=== PATIENT | female | born 1980 | race Caucasian/White ===

== ENCOUNTER → 2016-12-07 | Day surgery (SDC) | payer BC ==
[~2016-12-07] MED LIST: Buffered Lidocaine 1% SYR 3ML* 3 ML/SYR SYRINGE INTRADERM ONE; Buffered Lidocaine 1% SYR 3ML* 3 ML/SYR SYRINGE ONE; Bupivacaine 0.5% SDV PF* 30 ML VIAL ONE; Clindamycin 900 MG IVPREMIX(* 900 MG/50 ML SDV IV ONE; Dexamethasone IV* 4 MG/ML 1 ML (4 MG) IV SLOW PU ONE; Dexamethasone IV* 4 MG/ML 1 ML (4 MG) ONE; EPINEPHrine AMP 1 MG/ML ONE; Famotidine IV* 10 MG/ML 2 ML (20 mg) IV ONE; Famotidine IV* 10 MG/ML 2 ML (20 mg) ONE; Ketorolac INJ* 30 MG/ML 1 ML VIAL ONE; Lidocaine 2% MPF* 2 ML VIAL ONE; Midazolam* 1 MG/ML 5 ML VIAL (5 MG) ONE; Ondansetron INJ* 2 MG/ML VIAL IV PRN; Ondansetron INJ* 2 MG/ML VIAL ONE; Propofol* 10 MG/ML 20 ML BTL IV PUSH ONE; fentaNYL* 50 MCG/ML 2 ML VIAL (100 MCG VIAL) ONE; fentaNYL* 50 MCG/ML 5 ML VIAL (250 MCG VIAL) ONE; methylPREDNISolone ACETATE 80* 80 MG/ML 1 ML VIAL ONE; oxyCODONE/Acetamin 5/325 MG* TAB ONE; oxyCODONE/Acetamin 5/325 MG* TAB PO PRN
[2016-12-07 10:05] LABS: UR Preg Internal Control QC Line Present
[2016-12-07] MEDS: fentaNYL* 50 MCG/ML 2 ML VIAL (100 MCG VIAL) IV PRN ×2 (13:29→13:46)
[2016-12-07 14:47] VITALS: BP 103/62
--- NOTE | 2016-12-08 02:14 | OP ---
OPERATIVE REPORT: DATE OF OPERATION: 12/07/16 DATE OF : 84 SURGEON: Nguyen Louie MD. ICE SKATING INSTRUCTOR: Tere Patterson LPN. ANESTHESIOLOGIST: Dr. Arora. ANESTHESIA: General. PRE-OP DIAGNOSIS: Right knee medial and lateral meniscal tear, osteoarthritic changes. POST-OP DIAGNOSIS: Right knee longitudinal medial meniscal tear, radial lateral meniscal tear, mode rate to severe degenerative osteoarthritis in the medial and patellofemoral compartments. PROCEDURE PERFORMED: Right knee arthroscopy with partial medial meniscectomy and partial lateral me niscectomy. COMPLICATIONS: None. ESTIMATED BLOOD LOSS: Less than 25 cc. SPECIMEN: None. BRIEF HISTORY/INDICATIONS: Ms. Domingo is a 36-year-old female with years of chronic right knee pain. She had prior ACL reconstruction and several arthroscopies for meniscal tear and scar tissue. She continued to have an increase in her pain over the last few months and thought she had a re-tear of her meniscus. MRI confirmed both medial and lateral meniscal tears. Due to the patient's decre ased quality of life and inability to take part in sports activity, she wished to have another right knee arthroscopy with partial meniscectomies, possible chondroplasty, possible synovectomy. Informed consent was obtained from the patient. She understood the risks of the procedure included b ut were not limited to bleeding, infection, damage to nearby structures, continued pain, need for fu rther surgery, stroke, heart attack, blood clot and . She wished to proceed. INTRAOPERATIVE FINDINGS: Intraoperatively, the patient was noted to have a longitudinal type tear i n white-red zone of the mid portion and posterior aspect of the medial meniscus. She had a radial t ear involving the mid portion of the lateral meniscus. She had a large fissure with exposed subchon dral bone along the weightbearing portion of the medial femoral condyle. She had some degenerative areas with loss of the cartilage in the lateral femoral condyle. She also had grade 2 and 3 Outerbr idge cartilage changes in the patellofemoral compartment. ACL graft appeared to be intact. DESCRIPTION OF PROCEDURE: Ms. Domingo was identified in the preanesthesia unit. Her right lower extr emity was marked as the correct operative site. Informed consent was signed and placed in the chart . The patient was taken to the operating room and placed under general anesthesia without difficult y. A tourniquet was placed on the right thigh but was not inflated. Right lower extremity was prep ped and draped in the usual sterile fashion. Preoperative time-out was made to correctly identify t he patient's side and site. Appropriate perioperative antibiotics were given within 1 hour of incis ion. A 0.5 cm anterolateral portal incision was made with a 15-blade and carried down through the capsule . Trocar was introduced. As soon as the light and water sources were turned on, there was immediate visualization of the suprapatellar pouch. A tour of the knee joint was performed. Suprapatellar p ouch had no obvious abnormality. There were small numerous cartilage fragments floating in the join t fluid. Patellofemoral compartment showed some anterior synovitis as well as some grade 2 and [address] cartilage changes. Medial gutters showed no obvious loose body or plica. Medial compartm ent showed no obvious meniscal tear. There was a large longitudinal fissure along the medial femora l condyle with exposed subchondral bone. This involved the majority of the medial femoral condyle w eightbearing surface. There was a loose piece of cartilage in the medial compartment. ACL graft appeared to be intact. The knee was placed in the [id number] position. Lateral menis cus had a visible radial tear in the mid portion. Some fissuring of the lateral femoral condyle car tilage. Under direct visualization, a medial portal incision was made with a 15-blade. Shaver was introduced and the large cartilage fragment in the medial compartment was removed. Next the probe was introdu shelia and a second tour of the knee joint was performed. Medial compartment fissure involve the major ity of the weightbearing surface of the medial femoral condyle. Probing of the medial meniscus show ed a longitudinal tear in the white-red zone involving the majority of the meniscus posteriorly and the mid portion. Straight biter and shaver were used to perform partial medial meniscectomy until a smooth border was obtained in the white-red zone. The ACL was probed and noted to be intact. The knee was placed in the [id number] position. A short straight biter and shaver were used to perf orm partial lateral meniscectomy. This radial tear was in the white-white and white- red zone at th e mid portion of the meniscus. A smooth border of the meniscus was obtained. At this time, the sha mavis was placed in the suprapatellar pouch. The knee was copiously irrigated with sterile saline unt il no further cartilage fragments were visible and no joint fluid. All instruments were carefully r emoved. The incisions were closed using interrupted 3-0 nylon suture. Xeroform, 4x4s, and Webril we re placed over the incisions. Rodri wrap and cold pack were placed over this. The patient's anesthes ia was reversed without difficulty. She was taken to the PACU in stable condition. Intended weight bearing will be weightbearing as tolerated. Intended DVT prophylaxis will be aspirin. [id number]/[facility] #: [id number]
== END | disposition home or self-care (01) ==
LOC: OR 09:09
PROVIDERS: ATTEND Orthopaedic Surgery Adult Reconstructive Orthopaedic Surgery
DX: M23.203 Derangement of unspecified medial meniscus due to old tear or injury, right knee (principal); M23.200 Derangement of unspecified lateral meniscus due to old tear or injury, right knee; M17.11 Unilateral primary osteoarthritis, right knee
CPT/HCPCS: 81025; A9270-GY; J0171; J1040; J1100; J1885; J2250; J2405; J2704; J3010

== ENCOUNTER 2018-02-11 10:51 | Emergency (ER) | payer BC ==
--- NOTE | 2018-02-11 11:43 | UC ---
FLU HPI - HPI Summary HPI Summary: 37 y/o female presents to the urgent care c/o sore throat, nasal congestion, dry cough, body aches, fatigue, RAMOS for the past 4 days. Pt reports. Pt is not sure of fever, She has been taking NYquill, Sudafed and ibuprofen PO to alleviate symptoms w/o any improvement. Ramos is 3/10 and nasal congestion w/ yellowish nasal discharge. Pt denies SOB, chest pain, abdominal pain, N/V/D. - History of Current Complaint Stated Complaint: FLU SYMPTOMS Time Seen by Provider: 02/11/18 11:42 Hx Obtained From: Patient Onset/Duration: Gradual Onset, Lasting Days - 4 days, Still Present, Worse Since - yesterday Severity Currently: Mild Severity Initially: Moderate Pain Intensity: 3 Pain Scale Used: 0-10 Numeric Associated Signs & Symptoms: Positive: Myalgia, Cough, Sore Throat, Nasal Congestion, Headache - Risk Factors Influenza Risk Factors: Negative - Allergy/Home Medications Allergies/Adverse Reactions: Allergies Allergy/AdvReac Type Severity Reaction Status Date / Time amoxicillin Allergy Rash Verified 02/11/18 11:55 Home Medications: Home Medications Dm/Acetaminophen/Doxylamine [Night Time Cold-Flu Rlf Sftgl] 02/11/18 [History] PMH/Surg Hx/FS Hx/Imm Hx Previously Healthy: Yes - Pt denies PMHX - Surgical History Surgical History: Yes Surgery Procedure, Year, and Place: left arthroscopic knee; tonsilLECTOMY; ACL replacement and arthroscopic right KNEE; wisdom teeth. Right knee arthoscropy to remove scar tissue X2 - Family History Known Family History: Positive: Diabetes Family History: Hypothyrodism - Social History Occupation: Employed Full-time Lives: With Family Alcohol Use: Rare Substance Use Type: None Smoking Status (MU): Never Smoked Tobacco Review of Systems Constitutional: Chills, Fatigue, Other - body aches Skin: Negative Eyes: Negative ENT: Sore Throat, Nasal Discharge, Sinus Congestion Respiratory: Cough - dry Cardiovascular: Negative Gastrointestinal: Negative Genitourinary: Negative Motor: Negative Neurovascular: Negative Musculoskeletal: Negative Neurological: Headache Psychological: Negative Is Patient Immunocompromised?: No All Other Systems Reviewed And Are Negative: Yes Physical Exam - Summary Physical Exam Summary: VITAL SIGNS: Reviewed. GENERAL: Patient is a well developed and nourished female who is sitting comfortable in the examining table. Patient is not in any acute respiratory distress. HEAD AND FACE: No signs of trauma. No ecchymosis, hematomas or skull depressions. No sinus tenderness. edematous erythematous nasal mucosa with yellowish discharge, EYES: PERRLA, EOMI x 2, No injected conjunctiva, clear watery eyes, no nystagmus. No photophobia. EARS: Hearing grossly intact. Ear canals and tympanic membranes are within normal limits. MOUTH: Positive pharynx with mild erythema, no exudates,no palatal petechiae. no B/L tonsillar enlargement, Uvula in midline. NECK: Supple, trachea is midline, Positive anterior cervical lymphadenopathy, no JVD, no carotid bruit, no c-spine tenderness, neck with full ROM. No meningeal signs, no Kernig's or brudzinskis signs. CHEST: Symmetric, no tenderness at palpation LUNGS: Clear to auscultation bilaterally. No wheezing or crackles. CVS: Regular rate and rhythm, S1 and S2 present, no murmurs or gallops appreciated. ABDOMEN: Soft, non-tender. No signs of distention. No rebound no guarding, and no masses palpated. Bowel sounds are normal. EXTREMITIES: FROM in all major joints, no edema, no cyanosis or clubbing. NEURO: Alert and oriented x 3. No acute neurological deficits. Speech is normal and follows commands. SKIN: Dry and warm Triage Information Reviewed: Yes Flu Course/Dx - Course Course Of Treatment: 37 y/o female presents to the urgent care c/o sore throat, nasal congestion, dry cough, body aches, fatigue, RAMOS for the past 4 days. Pt reports. Pt is not sure of fever, She has been taking NYquill, Sudafed and ibuprofen PO to alleviate symptoms w/o any improvement. Ramos is 3/10 and nasal congestion w/ yellowish nasal discharge. Pt denies SOB, chest pain, abdominal pain, N/V/D. Hx obtaine. Pt w/ URI on examination. Influenza A&B ordered: result: negative. Pt Rx ibuprofen PO and Tessalon tabs PO to alleviates symptoms. Advised on hand washing. Pt advised to rest, increase fluid intake, eat well and avoid strenuous exercise. If symptoms do not improve or worsen advised to return to the urgent care or f/u with her PCP for further evaluation and treatment. Pt understood and agreed with plan of care. - Differential Dx/Diagnosis Differential Diagnosis/HQI/PQRI: Bronchitis, Influenza, Upper Respiratory Infection Provider Diagnoses: 1- Upper respiratory infection. 2- Cough Discharge - Sign-Out/Discharge Documenting (check all that apply): Discharge - Discharge Plan Condition: Stable Disposition: HOME Prescriptions: Benzonatate CAP* [Tessalon 100 MG CAP*] 100 mg PO TID PRN #21 cap PRN Reason: Cough Patient Education Materials: Upper Respiratory Infection (ED) Forms: *Work Release Referrals: [facility] [place] [facility] [Outside] - 3 Days Additional Instructions: 1- Please take Tessalon tabs PO as directed to alleviate cough 2-Please continue taking Ibuprofen PO q6-8hrs prn as instructed after meals to alleviate fever, and sore throat. Increase fluid intake, eat well, rest and avoid strenuous exercise 3-If symptoms do not improve or worsen please return to the urgent care or f/u with your PCP in 3 days for further evaluation and treatment. - Billing Disposition and Condition Condition: STABLE Disposition: HOME
[2018-02-11 11:56] VITALS: BP 120/82
== END 2018-02-11 12:38 | disposition home or self-care (01) ==
LOC: UCCORT 10:51
DX: J06.9 Acute upper respiratory infection, unspecified (principal); R05 Cough; Z88.0 Allergy status to penicillin
CPT/HCPCS: 87502; 99211; G0463

== ENCOUNTER 2018-05-09 08:14 | Day surgery (SDC) | payer BC ==
[~2018-05-09 08:14] MED LIST changes: +Buffered Lidocaine 0.9% SYRIN* 5 ML/SYR SYRINGE INTRADERM ONE; -Buffered Lidocaine 1% SYR 3ML* 3 ML/SYR SYRINGE INTRADERM ONE; -Buffered Lidocaine 1% SYR 3ML* 3 ML/SYR SYRINGE ONE; -Bupivacaine 0.5% SDV PF* 30 ML VIAL ONE; -Clindamycin 900 MG IVPREMIX(* 900 MG/50 ML SDV IV ONE; -Dexamethasone IV* 4 MG/ML 1 ML (4 MG) IV SLOW PU ONE; -Dexamethasone IV* 4 MG/ML 1 ML (4 MG) ONE; -EPINEPHrine AMP 1 MG/ML ONE; -Famotidine IV* 10 MG/ML 2 ML (20 mg) IV ONE; -Famotidine IV* 10 MG/ML 2 ML (20 mg) ONE; -Ketorolac INJ* 30 MG/ML 1 ML VIAL ONE; -Lidocaine 2% MPF* 2 ML VIAL ONE; -Midazolam* 1 MG/ML 5 ML VIAL (5 MG) ONE; -Ondansetron INJ* 2 MG/ML VIAL IV PRN; -Ondansetron INJ* 2 MG/ML VIAL ONE; -Propofol* 10 MG/ML 20 ML BTL IV PUSH ONE; -fentaNYL* 50 MCG/ML 2 ML VIAL (100 MCG VIAL) ONE; -fentaNYL* 50 MCG/ML 5 ML VIAL (250 MCG VIAL) ONE; -methylPREDNISolone ACETATE 80* 80 MG/ML 1 ML VIAL ONE; -oxyCODONE/Acetamin 5/325 MG* TAB ONE; -oxyCODONE/Acetamin 5/325 MG* TAB PO PRN
[2018-05-09] MEDS ORDERED: Midazolam* 1 MG/ML 2 ML VIAL (2 MG) ONE (09:17)
[2018-05-09] MEDS ORDERED: fentaNYL* 50 MCG/ML 2 ML VIAL (100 MCG VIAL) ONE ×2 (09:17→11:14)
[2018-05-09] MEDS ORDERED: Dexamethasone IV* 4 MG/ML 1 ML (4 MG) ONE (10:20)
[2018-05-09] MEDS ORDERED: Famotidine IV* 10 MG/ML 2 ML (20 mg) ONE (10:20)
[2018-05-09] MEDS ORDERED: Ketorolac INJ* 30 MG/ML 1 ML VIAL ONE (10:20)
[2018-05-09] MEDS ORDERED: Propofol* 10 MG/ML 20 ML BTL IV PUSH ONE (10:20)
[2018-05-09] MEDS ORDERED: Acetaminophen TAB* 325 MG PO PRN (10:26)
[2018-05-09] MEDS ORDERED: Nalbuphine* 20 MG/ML 1 ML VIAL IV PRN (10:26)
[2018-05-09] MEDS ORDERED: PROCHLORPERAZINE INJ 5 MG/ML 2 ML VIAL IV PRN (10:26)
[2018-05-09] MEDS ORDERED: Naloxone* 0.4 MG/ML 1 ML VIAL IV PRN (10:26)
[2018-05-09] MEDS ORDERED: HYDROcodone/ACETAMIN 5-325 MG* 1 TAB PO PRN (10:26)
[2018-05-09] MEDS ORDERED: Ondansetron ODT TAB* 4 MG PO PRN (10:26)
[2018-05-09] MEDS ORDERED: DiMENhydriNATE IV* 50 MG/ML VIAL IV PUSH PRN (10:26)
[2018-05-09] MEDS ORDERED: Silver Nitrate/Potassium Nitr* 1 EA STICK ONE (10:27)
[2018-05-09] MEDS ORDERED: DiMENhydriNATE IV* 50 MG/ML VIAL ONE (11:10)
[2018-05-09] MEDS: fentaNYL* 50 MCG/ML 2 ML VIAL (100 MCG VIAL) IV PRN ×2 (11:15→11:48)
[2018-05-09] MEDS ORDERED: HYDROcodone/ACETAMIN 5-325 MG* 1 TAB ONE (11:49)
[2018-05-09 12:46] VITALS: BP 111/73
--- NOTE | 2018-05-10 02:36 | OP ---
OPERATIVE REPORT: DATE OF OPERATION: 05/09/18 DATE OF : 84 SURGEON: Tamar Reed MD ANESTHESIOLOGIST: Dr. Ch. ANESTHESIA: General endotracheal. PRE-OP DIAGNOSIS: Menorrhagia and likely endometrial polyp. POST-OP DIAGNOSIS: Menorrhagia and likely endometrial polyp. OPERATIVE PROCEDURE: Hysteroscopy, dilation and curettage, and MyoSure polypectomy. ESTIMATED BLOOD LOSS: 30 cc. URINE OUTPUT: 325 cc. IV FLUIDS: 1000 cc lactated Ringer's. MATERIAL TO LAB: Endometrial curettings and polyp fragments. INDICATIONS: This patient was a 37-year-old 0 who presented with a report of fairly new onset of very heavy menstrual bleeding. Pelvis ultrasound was notable for a thick endometrium with apparent endometrial polyp. The patient was extensively counseled and consented for a hysteroscopy, dilation and curettage, and likely polypectomy. FINDINGS: Uterine cavity with very thick endometrium, apparent anterior polyp, possible submucosal fibroid posteriorly. COMPLICATIONS: None. DESCRIPTION OF PROCEDURE: The risks, benefits, and alternatives were described with the patient and informed consent was obtained. The patient was taken to the operating room with IV running where general anesthesia was induced and found to be adequate. The patient was prepped and draped in the normal sterile fashion in a high lithotomy position in [facility]. A time-out was performed. The bladder was emptied. A bivalve speculum was placed in the vagina and a single tooth tenaculum was placed on the anterior cervix. The cervix was then gently dilated using Hegar and Hanks dilators to a size of 27. At that time, a MyoSure hysteroscope was advanced through the cervix and into the uterine cavity with saline running. Saline was managed with an Aquilex fluid management system. The endometrial cavity was visualized and there was very thick endometrium especially anteriorly. A MyoSure Reach device was then placed through the channel of the hysteroscope and the polypoid tissue on the anterior surface was removed. There also appeared to be a possible small myoma on the posterior aspect, which was also resected. The hysteroscope was then removed and a curettage was then performed using a medium banjo curette. The tenaculum was then removed from the cervix and after applying some pressure and some silver nitrate, there was good hemostasis present. The speculum was then removed and the patient was returned to the supine position. The patient tolerated the procedure well. Sponge, lap, and needle counts were correct x2. Hysteroscopic deficit was about 500 cc of saline. [id number]/[facility] #: [id number] [facility]
== END 2018-05-09 13:04 | disposition home or self-care (01) ==
LOC: OR 08:14
PROVIDERS: ATTEND Obstetrics & Gynecology
DX: N92.0 Excessive and frequent menstruation with regular cycle (principal); D25.0 Submucous leiomyoma of uterus; Z68.41 Body mass index [BMI] 40.0-44.9, adult
CPT/HCPCS: 81025; 88305; A9270-GY; J1100; J1240; J1885; J2250; J2704; J3010

== ENCOUNTER → 2019-03-20 10:24 | Emergency (ER) | payer BC ==
--- NOTE | 2019-03-20 11:20 | ED ---
GI/ HPI - HPI Summary HPI Summary: Patient is a 38-year-old female who presents emergency department for Urinary urgency and frequency 2 weeks. Patient denies fever, chills, abdominal pain, flank pain, hematuria. Denies vaginal discharge or irregular bleeding or concern for STI's. Patient denies past medical history. Symptoms are mild in severity. No current modifying factors. - History of Current Complaint Chief Complaint: EDUrogenitalProblems Time Seen by Provider: 03/20/19 11:02 Stated Complaint: FREQUENT URINATION PER PT Hx Obtained From: Patient Hx Last Menstrual Period: 09/08/16 Pain Intensity: 4 - Allergy/Home Medications Allergies/Adverse Reactions: Allergies Allergy/AdvReac Type Severity Reaction Status Date / Time amoxicillin Allergy Severe Rash Verified 03/20/19 10:48 PMH/Surg Hx/FS Hx/Imm Hx Previously Healthy: Yes Endocrine/Hematology History: Denies: Hx Diabetes Cardiovascular History: Denies: Hx Hypertension, Hx Pacemaker/ICD Respiratory History: Reports: Hx Sleep Apnea History: Denies: Hx Renal Disease Musculoskeletal History: Reports: Hx Arthritis - osteoarthritis right knee, Other Musculoskeletal History - RIGHT KNEE Sensory History: Reports: Hx Contacts or Glasses - both- wear glasses day of surgery Denies: Hx Hearing Aid Opthamlomology History: Reports: Hx Contacts or Glasses - both- wear glasses day of surgery Psychiatric History: Denies: Hx Panic Disorder - Cancer History Hx Chemotherapy: No - Surgical History Surgery Procedure, Year, and Place: left arthroscopic knee; tonsilLECTOMY; ACL replacement and arthroscopic right KNEE; wisdom teeth. Right knee arthoscropy to remove scar tissue X2 Hx Anesthesia Reactions: No Infectious Disease History: No Infectious Disease History: Denies: Hx Clostridium Difficile, Hx Hepatitis, Hx Human Immunodeficiency Virus (HIV), Hx of Known/Suspected MRSA, Hx Shingles, Hx Tuberculosis, Hx Known/ Suspected VRE, Hx Known/Suspected VRSA, History Other Infectious Disease, Traveled Outside the [place] in Last 30 Days - Family History Known Family History: Positive: Diabetes, Other - positive FMH of laceration Family History: Hypothyrodism - Social History Occupation: Employed Full-time Lives: With Family Alcohol Use: Rare Substance Use Type: Reports: None Smoking Status (MU): Never Smoked Tobacco Review of Systems Constitutional: Negative Negative: Fever, Chills Gastrointestinal: Negative Negative: Abdominal Pain, Vomiting, Nausea Positive: frequency, urgency. Negative: discharge, flank pain, hematuria All Other Systems Reviewed And Are Negative: Yes Physical Exam Triage Information Reviewed: Yes Vital Signs On Initial Exam: Initial Vitals Temp Pulse Resp BP Pulse Ox 98.0 F 88 18 130/83 99 03/20/19 10:45 03/20/19 10:45 03/20/19 10:45 03/20/19 10:45 03/20/19 10:45 Vital Signs Reviewed: Yes Appearance: Positive: Well-Appearing - Pt. sitting on bed in NAD. Skin: Positive: Warm, Dry Head/Face: Positive: Normal Head/Face Inspection Eyes: Positive: Normal, EOMI Neck: Positive: Supple Respiratory/Lung Sounds: Positive: Clear to Auscultation, Breath Sounds Present Cardiovascular: Positive: Normal, RRR Abdomen Description: Positive: Nontender, Soft. Negative: CVA Tenderness (R), CVA Tenderness (L) Neurological: Positive: Normal, CN Intact II-III Psychiatric: Positive: Affect/Mood Appropriate Diagnostics - Vital Signs Vital Signs Temp Pulse Resp BP Pulse Ox 03/20/19 10:45 98.0 F 88 18 130/83 99 - Laboratory Lab Statement: Any lab studies that have been ordered have been reviewed, and results considered in the medical decision making process. GIGU Course/Dx - Course Course Of Treatment: Patient presenting with urinary frequency and urgency. She is afebrile with a benign exam. Urinalysis is negative for infection. Results were discussed with patient. She denies concern for STD eyes. Patient states she's been having a spasming sensation to her bladder many feeling of urgency and frequency. Patient notes she has had this in the past and saw urology but did not have any tests performed. Suspect possible interstitial cystitis. Will try patient on a short course of antibiotics for possible UTI.. And pyridium prescribed. Can take anti-inflammatories for pain as directed. Advised increase fluids. Advised to avoid acidic, spicy, caffeine, alcohol. To follow-up with [facility] for referral to urology if symptoms persist. Patient understands and agrees with plan. - Diagnoses Differential Diagnoses - Female: Renal Colic, STD, Urinary Tract Infection, Vaginitis Provider Diagnoses: Dysuria Discharge - Sign-Out/Discharge Documenting (check all that apply): Patient Departure Patient Received Moderate/Deep Sedation with Procedure: No - Discharge Plan Condition: Good Disposition: HOME Prescriptions: Nitrofurantoin Monohyd/M-Cryst [Macrobid 100 mg Capsule] 100 mg PO BID 5 Days # 10 cap Phenazopyridine TAB* [Pyridium 100 mg TAB*] 100 mg PO TID #9 tab Patient Education Materials: Dysuria (ED) Referrals: [facility] [Outside] [facility] [Outside] Additional Instructions: Follow up with the [facility] for further evaluation You may need referral to urology if symptoms persist Take medication as directed Increase fluids Tylenol or Motrin for pain as directed Avoid caffeine, alcohol, spicy/acid food and drink Increase water intake Return to ER for fever, vomiting, flank pain or if concerned - Billing Disposition and Condition Condition: GOOD Disposition: Home
[2019-03-20 11:27] LABS: Urine Appearance Clear; Urine Bilirubin Negative (Negative); Urine Blood Negative (Negative); Urine Color Yellow; Urine Glucose Negative (Negative); Urine Ketones Negative (Negative); Urine Nitrite Negative (Negative); Urine Protein Negative (Negative); Urine Specific Gravity 1.008 (1.010-1.030); Urine Urobilinogen Negative (Negative)
[2019-03-20 12:06] VITALS: BP 125/91
== END | disposition home or self-care (01) ==
LOC: ED 10:24
DX: R30.0 Dysuria (principal)
CPT/HCPCS: 81003; 99282

== ENCOUNTER 2019-11-01 19:00 | Emergency (ER) | payer BC ==
[2019-11-01 19:55] VITALS: BP 140/87
--- NOTE | 2019-11-01 20:31 | UC ---
Complaint Female HPI - HPI Summary HPI Summary: 39 y/o female presents to the urgent care c/o urinary symptoms since 2018 on and off. Her PCP Dx w/ Overreactive bladder adn Rx Oxybutin PO and Physical therapy for to strengthen her pelvic floor muscles. However she had to stop PT since her insurance no longer approved the therapy. Since yesterday, she feels she has a flare up of a UTI since she is having more frequency on urination and a burning sensation. Pain on urination is 5/1. pt denies fever, lower back pain, flank pain, abdominal pain, vaginal discharge, SOB, chest pain , [place], dizziness, N/V/d. Pt had not taken anything to alleviate symptoms. - History Of Current Complaint Chief Complaint: UCGU Stated Complaint: URINARY Time Seen by Provider: 11/01/19 20:19 Hx Obtained From: Patient Hx Last Menstrual Period: 10/25/19 ?: No Onset/Duration: Gradual Onset, Lasting Days - 2 days, Still Present, Worse Since - this morning Timing: Intermittent Severity Initially: Mild Severity Currently: Mild Pain Intensity: 2 Pain Scale Used: 0-10 Numeric Character: Burning Aggravating Factor(s): Urination Alleviating Factor(s): Nothing Associated Signs And Symptoms: Positive: Negative. Negative: Fever, Back Pain, Vaginal Discharge, Nausea, Vomiting(# Of Episodes =), Genital Swelling Related Hx: Similar Episode/Dx as: - UTI - Risk Factors Ectopic Risk Factor: Negative - Allergies/Home Medications Allergies/Adverse Reactions: Allergies Allergy/AdvReac Type Severity Reaction Status Date / Time amoxicillin Allergy Severe Rash Verified 11/01/19 19:55 Home Medications: Home Medications Oxybutynin TAB* [Ditropan TAB*] 5 mg PO BID 11/01/19 [History Confirmed 11/01/19 ] PMH/Surg Hx/FS Hx/Imm Hx Previously Healthy: Yes Other GI/ History: overreactive bladder - Surgical History Surgical History: Yes Surgery Procedure, Year, and Place: left arthroscopic knee; tonsilLECTOMY; ACL replacement and arthroscopic right KNEE; wisdom teeth. Right knee arthoscropy to remove scar tissue X2. POLYPECTOMY OF U[place]2018 [facility] [place] History Known Family History: Positive: Hypertension, Diabetes, Other - positive FMH of laceration Family History: Hypothyrodism - Social History Occupation: Employed Full-time Lives: With Family Alcohol Use: Rare Substance Use Type: None Smoking Status (MU): Never Smoked Tobacco Review of Systems All Other Systems Reviewed And Are Negative: Yes Constitutional: Positive: Negative Skin: Positive: Negative Eyes: Positive: Negative ENT: Positive: Negative Respiratory: Positive: Negative Cardiovascular: Positive: Negative Gastrointestinal: Positive: Negative Genitourinary: Positive: Dysuria, Frequency, Urgency Motor: Positive: Negative Neurovascular: Positive: Negative Musculoskeletal: Positive: Negative Neurological: Positive: Negative Psychological: Positive: Negative Is Patient Immunocompromised?: No Physical Exam - Summary Physical Exam Summary: VITAL SIGNS: Reviewed. GENERAL: Patient is a well developed and nourished female who is sitting comfortable in the examining table. Patient is not in any acute respiratory distress. HEAD AND FACE: No signs of trauma. No ecchymosis, hematomas or skull depressions. No sinus tenderness. EYES: PERRLA, EOMI x 2, No injected conjunctiva, clear watery eyes, no nystagmus. No photophobia. EARS: Hearing grossly intact. Ear canals and tympanic membranes are within normal limits. MOUTH: pharynx with no erythema, no exudates,no palatal petechiae. no B/L tonsillar enlargement Uvula in midline. NECK: Supple, trachea is midline, no lymphadenopathy, no JVD, no carotid bruit, no c-spine tenderness, neck with full ROM. CHEST: Symmetric, no tenderness at palpation LUNGS: Clear to auscultation bilaterally. No wheezing or crackles. CVS: Regular rate and rhythm, S1 and S2 present, no murmurs or gallops appreciated. ABDOMEN: Soft, non-tender. No signs of distention. No rebound no guarding, and no masses palpated. Bowel sounds are normal. BACK:no scoliosis or lesions, non tender to palpation, No B/L CVA tenderness EXTREMITIES: FROM in all major joints, no edema, no cyanosis or clubbing. NEURO: Alert and oriented x 3. No acute neurological deficits. Speech is normal and follows commands. SKIN: Dry and warm Triage Information Reviewed: Yes Vital Signs: Initial Vital Signs Temp 97.9 F 11/01/19 19:46 Pulse 85 11/01/19 19:46 Resp 16 11/01/19 19:46 BP 140/87 11/01/19 19:46 Pulse Ox 98 11/01/19 19:46 Procedures - Laceration/Wound Repair 1 Irrigated w/ Saline (ccs): 500 Complaint Female Dx - Course Course Of Treatment: 39 y/o female presents to the urgent care c/o urinary symptoms since 2018 on and off. Her PCP Dx w/ Overreactive bladder adn Rx Oxybutin PO and Physical therapy for to strengthen her pelvic floor muscles. However she had to stop PT since her insurance no longer approved the therapy. Since yesterday, she feels she has a flare up of a UTI since she is having more frequency on urination and a burning sensation. Pain on urination is 5/1. pt denies fever, lower back pain, flank pain, abdominal pain, vaginal discharge, SOB, chest pain , [place], dizziness, N/V/d. Pt had not taken anything to alleviate symptoms. Hx obtained. PE;WNL. UA and test ordered. UA results: 1+ketones. test: negative. pt w/ Hx of overreactive bladder and recurrent UTI and request prophylactic Tx for UTI. Pt Rx Bactrim PO x 3 days. Pyridium 100mg PO TID x 2 days. First dose given tonight. Advised to increase fluid intake. Urine sent for culture if any abnormality Pt will be notified for further treatment. Pt given urologist referral dr [place] for further management on her symptoms. Pt advised If symptoms do not improve to return to the urgent care or f/u with PCP. Pt's BP is elevated today advised to decrease salt in diet, monitor BP and f/u with PCP for further management. Pt understood and agreed. Left the clinic ambulating. - Differential Dx/Diagnosis Differential Diagnosis/HQI/PQRI: Cervicitis, Ovarian Torsion, , Renal Colic, Ureteral Stone, Urinary Tract Infection Provider Diagnosis: Dysuria, Elevated BP without diagnosis of hypertension Discharge ED - Sign-Out/Discharge Documenting (check all that apply): Patient Departure - D/C home All imaging exams completed and their final reports reviewed: No Studies - Discharge Plan Condition: Stable Disposition: HOME Prescriptions: Fluconazole 150 MG TAB* [Diflucan 150 MG TAB*] 150 mg PO UC ONCE #1 tablet Phenazopyridine TAB* [Pyridium 100 mg TAB*] 100 mg PO TID #5 tab Sulfamethox/Trimethoprim DS* [Bactrim DS 800/160 TAB*] 1 tab PO BID #5 tab Patient Education Materials: Dysuria (ED) Referrals: Stephen Calderon MD [Primary Care Provider] - 2 Days Rodney Richardson MD [Medical Doctor] - 3 Days Additional Instructions: 1- Please take Bactrim PO x 7 days. Pyridium 100 mg PO TID x 2 days to alleviate urinary symptoms. Increase increase fluid intake. drink cranberry juice. 2-Urine sent for culture if any abnormality, you will be notified for further treatment. 3-If symptoms do not improve please f/u w/ Urologist DR [place] or your PCP for further management on your Overreactive bladder. 4- Your BP is elevated today advised to decrease salt in diet, monitor BP and f/ u with PCP for further management. - Billing Disposition and Condition Condition: STABLE Disposition: Home - Attestation Statements Provider Attestation: I was available for consult. This patient was seen by the [facility]. The patient was not presented to , seen by or examined by pr -Walter Friend MD
[2019-11-01] MEDS ORDERED: Phenazopyridine TAB* 100 MG PO ONE (20:52)
[2019-11-01] MEDS ORDERED: Sulfamethox/Trimethoprim DS 800/160* TAB PO ONE (20:53)
== END 2019-11-01 21:12 | disposition home or self-care (01) ==
LOC: UCCORT 19:00
DX: R30.0 Dysuria (principal); R03.0 Elevated blood-pressure reading, without diagnosis of hypertension; N39.0 Urinary tract infection, site not specified; N32.89 Other specified disorders of bladder; R35.0 Frequency of micturition; R39.15 Urgency of urination; Z88.0 Allergy status to penicillin
CPT/HCPCS: 81003; 84702; 87086; 99212; A9270-GY; G0463